=== PATIENT | female | born 2000 | race Caucasian/White ===

== ENCOUNTER 2024-06-11 08:54 | Emergency (ER) | payer OTHER, SELFPAY ==
[2024-06-11 10:03] VITALS: BP 149/92; PULSE 110; RESP 16; TEMP 36.9; O2SAT 100
--- NOTE | 2024-06-11 10:07 | ED.URI ---
HPI - URI/Sore Throat General Chief Complaint: Upper Respiratory Infection Stated Complaint: swelling in throat Time Seen by Provider: 06/11/24 09:00 Source: patient Mode of arrival: ambulatory Limitations: no limitations History of Present Illness HPI Narrative: Tiffanie is a 24-year-old female patient presenting to the clinic today with complaints swelling in her throat. She reports that yesterday she developed a sore throat and this morning she felt as though she had uvula swelling. She denies any fever, chills, or body aches. Denies any URI symptoms. States her mom does have a history of uvulitis. States that she is having difficulty swallowing. No drooling noted. She is able to speak in full sentences without having to be interrupted to take breaths MD elicited complaint: sore throat and other (Uvula swelling) Related Data Allergies Allergy/AdvReac Type Severity Reaction Status Date / Time No Known Allergies Allergy Verified 06/11/24 09:58 Review of Systems Review of Systems: Pertinent positives per HPI. Patient denies any fever, chills, rash, headache, visual changes, dizziness, cough, shortness of breath, chest pain, palpitations, nausea, vomiting, diarrhea, constipation, abdominal pain, or any urinary issues. PMFSH Surgical History Surgical History [place] teeth extracted Family History Family History Mother Heart disease Sibling Asthma Social History Social History Smoking status: Never smoker Alcohol intake: current Drinks per week: 1 Alcohol use details: seltzers, less than monthly Comments At the time of my signature, I reviewed and agree with the nursing past medical, surgical, social, and family history. There is no relevant family history pertinent to the patient complaint. Exam Narrative: General: Well-developed, well nourished, in no apparent distress Head: Normocephalic, atraumatic Eyes: Pupils equally round and reactive to light bilaterally, EOM intact, sclera and conjunctive clear, no discharge, lids normal Ears: TMs intact and clear, ear canals clear, no drainage, grossly hearing normal. Nose: Nares patent, clear discharge, no inflammation, no sinus tenderness. Mouth: Oral pharynx mild uvula swelling and redness in her throat, without lesions or masses, good dentition, MMM. Neck: Supple, trachea midline, no enlargement of anterior or posterior cervical nodes, no thyroid masses or goiter palpable. Cardio: Regular rate and rhythm, s1 and s2 normal, no murmur appreciated. Resp: Clear to auscultation bilaterally, no rhonchi, rales, wheezing or rubs Course Course Emergency Course: Portions of this record may have been created with voice recognition software. Level of Care: Express Care Visit Vital Signs Vital signs: Vital Signs Temperature 36.9 C 06/11/24 10:03 Pulse Rate 110 H 06/11/24 10:03 Respiratory Rate 16 06/11/24 10:03 Blood Pressure 149/92 H 06/11/24 10:03 Pulse Oximetry 100 06/11/24 10:03 Temperature 36.9 C 06/11/24 10:03 Pulse Rate 110 H 06/11/24 10:03 Respiratory Rate 16 06/11/24 10:03 Blood Pressure 149/92 H 06/11/24 10:03 Pulse Oximetry 100 06/11/24 10:03 Vital signs reviewed MDM - URI/Sore Throat MDM Narrative Medical decision making narrative: At the time of visit patient is resting comfortably on the exam table. Patient appears to be nontoxic. Labs: Strep test was negative in the clinic today. We will send strep for culture. Plan: I suspect patient has pharyngitis uvulitis. Patient is not in respiratory distress and she is able to speak in full sentences without being interrupted to take a breath. Patient is not drooling and is able to swallow her own saliva. Prescription for prednisone was sent to the pharmacy. Supportive measures were discussed with the patient and they voiced understanding discharge instructions and agrees to treatment plan. Return precautions reviewed Differential Diagnosis Differential diagnosis: Likely upper respiratory infection, otitis media, sinusitis, viral infection, bronchitis, influenza, pharyngitis and other (COVID) Discharge Plan Discharge Clinical Impression: Uvulitis Pharyngitis Qualifiers: Pharyngitis/tonsillitis etiology: unspecified etiology Qualified Code(s): J02.9 - Acute pharyngitis, unspecified Patient Disposition: Home, Self-Care Condition: Stable Instructions: Antibiotic Form, Pharyngitis (ED), Uvulitis (ED) Additional Instructions: Strep test was negative in the clinic today. We will send strep for culture if this comes back positive we will contact him place you on antibiotics at that time. Take prescription medications only as prescribed-prednisone Increase fluids and stay well hydrated Tylenol/motrin for pain/fever Flonase and OTC antihistamines as directed Vicks vapor rub to open sinuses Sinus rinses for congestion Cepacol spray, cough drops, throat lozenges, warm tea with honey/lemon, gargle salt water to soothe throat BRAT diet for diarrhea Clear liquids x 24 hours then advance as tolerated for nausea/vomiting Go to the ED if you develop a worsening in your condition- high fever not controlled by Tylenol or Motrin, dehydration, weakness, lethargy, shortness of breath, or chest pain. Follow up with your PCP in 3-5 days if symptoms persist. Prescriptions: New prednisone 20 mg tablet 40 mg PO DAILY 5 Days Qty: 10 0RF No Action norgestimate-ethinyl estradiol [VyLibra] 0.25-35 mg-mcg tablet 1 tablet PO DAILY Qty: 84 4RF Follow-up/Referrals: PHYSICIAN,[employer]ER [Primary Care Provider] - Time of Disposition: 10:10 Quality NIHSS Nursing Documentation ED NIHSS nursing documentation: reviewed/agree
[2024-06-12 10:04] LABS: EDSTREPNEGPOS1 Negative (Negative)
== END 2024-06-11 10:15 | disposition home or self-care (01) ==
PROVIDERS: Emergency Provider Nurse Practitioner Family
DX: K12.2 Cellulitis and abscess of mouth (principal); J02.9 Acute pharyngitis, unspecified
CPT/HCPCS: 87081; 87880; 99213; G0463